=== PATIENT | male | born 1940 | race Caucasian/White ===

== ENCOUNTER 2022-06-28 15:07 | Emergency (ER) | payer MEDICARE, OTHER ==
[2022-06-28] MEDS ORDERED: Bacitracin 1 PK ONE (17:10)
== END 2022-06-28 17:53 | disposition home or self-care (01) ==
LOC: CSHERS 15:07
DX: S80.811A Abrasion, right lower leg, initial encounter (principal); I10 Essential (primary) hypertension; X58.XXXA Exposure to other specified factors, initial encounter

== ENCOUNTER 2024-06-18 18:49 | Observation (INO) | payer MEDICARE ==
[2024-06-18 19:48] LABS: #Basophils 0.09 10x3/uL (0.0-0.2); #Monocytes 1.17 10x3/uL (0.0-1.1); #Neutrophils 4.46 10x3/uL (1.5-8.4); %Basophils 1.1 % (0.0-2.0); %Eosinophils 3.8 % (0.0-6.0); %Lymphocytes 23.2 % (18.0-47.0); %Monocytes 14.8 % (0.0-10.0); %Neutrophils 56.6 % (40.0-75.0); Hematocrit 41.9 % (38.8-50.0); Mean Corpuscular HGB CONC 33.4 g/dL (32.0-36.0); Mean Corpuscular Volume 92.9 fL (81.2-95.1); Mean Platelet Volume 11.4 fL (7.4-10.4); Platelet Count 164 10x3/uL (150-450); RBC Distribution Width 12.3 % (11.5-14.5); Red Blood Cell (RBC) Count 4.51 10x6/uL (4.32-5.72); White Blood Cell (WBC) Count 7.9 10x3/uL (3.5-10.5)
[2024-06-18 19:58] LABS: ALT (SGPT) 48 U/L (8-55); AST (SGOT) 47 U/L (5-34); Albumin 3.7 g/dL (3.4-4.8); Alkaline Phosphatase 47 U/L (40-110); Anion Gap 14 mmol/L (10-20); BUN (Urea Nitrogen) 19 mg/dL (8.4-25.7); Bilirubin, Total 1.1 mg/dL (0.2-1.2); Calc. Creatinine Clearance 0 mL/min (70-130); Calcium 9.2 mg/dL (7.8-10.44); Carbon Dioxide 22 mmol/L (23-31); Chloride 107 mmol/L (98-107); Estimated GFR 60; Globulin 2.8 g/dL (2.4-3.5); Glucose 118 mg/dL (83-110); Potassium 4.3 mmol/L (3.5-5.1); Protein, Total 6.5 g/dL (5.8-8.1); Sodium 139 mmol/L (136-145)
[2024-06-18 20:04] LABS: Troponin I 0.014 ng/mL (< 0.028)
[2024-06-18] MEDS ORDERED: Senokot S 8.6-50 MG TAB PO PRN (21:36)
[2024-06-18] MEDS ORDERED: Ondansetron PF 4 MG/2 ML Vial IVP PRN (21:36)
[2024-06-18] MEDS ORDERED: Acetaminophen 325 MG TAB PO PRN (21:36)
[2024-06-18] MEDS ORDERED: Calcium Carbonate 500 MG ChewTAB PO PRN (21:36)
[2024-06-18] MEDS ORDERED: Dextrose 50% Abboject 50 ML SYRINGE SLOW IVP PRN (21:42)
[2024-06-18] MEDS ORDERED: Glucagon 1 MG/ML KIT IM PRN (21:42)
[2024-06-18] MEDS ORDERED: Insulin Lispro 100 UNIT/ML 10 ML VIAL SC PRN (21:42)
[2024-06-18] MEDS ORDERED: Dextrose 5% in Water 1,000 ML IV PRN (21:42)
[2024-06-18 22:30] VITALS: BMI 27.9
[2024-06-18] MEDS: Magnesium Sulfate/D5W 1 GM/100 ML BAG IVPB SCH (22:58)
[2024-06-18] MEDS: Enoxaparin 100 MG (1 mL) SYRINGE SC SCH (23:09)
[2024-06-19 03:57] LABS: Anion Gap 13 mmol/L (10-20); BUN (Urea Nitrogen) 18 mg/dL (8.4-25.7); Calc. Creatinine Clearance 67 mL/min (70-130); Calcium 8.8 mg/dL (7.8-10.44); Carbon Dioxide 22 mmol/L (23-31); Chloride 108 mmol/L (98-107); Estimated GFR 68; Glucose 169 mg/dL (83-110); Magnesium 1.9 mg/dL (1.6-2.6); Potassium 3.7 mmol/L (3.5-5.1); Sodium 139 mmol/L (136-145); Troponin I 0.017 ng/mL (< 0.028)
[2024-06-19] MEDS: Famotidine 20 MG TAB PO SCH (09:15)
[2024-06-19] MEDS: Magnesium Oxide 400 MG TAB PO SCH (09:15)
[2024-06-19] MEDS: Potassium Chloride 20 MEQ TAB PO SCH (09:15)
[2024-06-19] MEDS: Amlodipine 5 MG TAB PO SCH (09:16)
[2024-06-19] MEDS: Enoxaparin 100 MG (1 mL) SYRINGE SC SCH (09:16)
[2024-06-19] MEDS: Ramipril 5 MG CAP PO SCH ×2 (10:17→11:58)
[2024-06-19 10:44] VITALS: TEMP 98
[2024-06-19 11:34] VITALS: BP 172/81
[2024-06-19 12:33] LABS: Hemoglobin A1c 6.1 % (4.0-6.0)
[2024-06-19] MEDS ORDERED: Rosuvastatin 10 MG TAB PO SCH (21:00)
[2024-06-19] MEDS ORDERED: Amlodipine 5 MG TAB PO SCH (21:00)
[2024-06-20] MEDS ORDERED: Ramipril 5 MG CAP PO SCH (09:00)
== END 2024-06-19 14:31 | disposition home or self-care (01) ==
LOC: CSHERS 18:49 → CSHTELE 21:29
PROVIDERS: ADMIT Student in an Organized Health Care Education/Training Program; ATTEND Student in an Organized Health Care Education/Training Program
PROC: B246ZZZ Ultrasonography of Right and Left Heart (ICD-10-PCS; principal; 2024-06-18)
DX: R42 Dizziness and giddiness (principal); I25.10 Atherosclerotic heart disease of native coronary artery without angina pectoris; I50.42 Chronic combined systolic (congestive) and diastolic (congestive) heart failure; I11.0 Hypertensive heart disease with heart failure; E78.2 Mixed hyperlipidemia; I48.0 Paroxysmal atrial fibrillation; I49.5 Sick sinus syndrome; I25.5 Ischemic cardiomyopathy; R00.1 Bradycardia, unspecified; E11.9 Type 2 diabetes mellitus without complications; I44.7 Left bundle-branch block, unspecified; Z88.8 Allergy status to other drugs, medicaments and biological substances; Z79.899 Other long term (current) drug therapy; Z79.84 Long term (current) use of oral hypoglycemic drugs; Z95.5 Presence of coronary angioplasty implant and graft; Z90.49 Acquired absence of other specified parts of digestive tract; Z98.890 Other specified postprocedural states
CPT/HCPCS: 71045; 80048; 80053; 82962 ×2; 83036; 83735; 84443; 84484 ×2; 85025; 93005 ×2; 93306; 93880; 99285; J1650 ×2; J3475; 36415; 36416; 93010; 96372; 96374; G0378

== ENCOUNTER 2024-09-07 17:40 | Emergency (ER) | payer MEDICARE ==
[2024-09-07] MEDS ORDERED: Acetaminophen 325 MG TAB ONE (20:06)
== END 2024-09-07 20:28 | disposition home or self-care (01) ==
LOC: CSHERS 17:40
DX: S42.031A Displaced fracture of lateral end of right clavicle, initial encounter for closed fracture (principal); S09.90XA Unspecified injury of head, initial encounter; I10 Essential (primary) hypertension; Z95.0 Presence of cardiac pacemaker; W18.30XA Fall on same level, unspecified, initial encounter
CPT/HCPCS: 70450; 72125

== ENCOUNTER 2024-09-14 14:45 | Emergency (ER) | payer MEDICARE | END 2024-09-14 15:44 | disposition home or self-care (01) | LOC: CSHERS 14:45 | DX: S42.031A Displaced fracture of lateral end of right clavicle, initial encounter for closed fracture (principal); Z79.01 Long term (current) use of anticoagulants; W19.XXXA Unspecified fall, initial encounter ==